=== PATIENT | female | born 1995 | race Caucasian/White ===

== ENCOUNTER 2020-02-16 07:33 | Observation (INO) ==
[2020-02-16] MEDS ORDERED: OXYTOCIN 30 UNITS/500 ML BAG IV PRN ×2 (07:43→23:06)
[2020-02-16] MEDS ORDERED: miSOPROStoL 200 MCG TAB PV ONE ×2 (07:43→16:45)
--- NOTE | 2020-02-16 08:01 | History & Physical Report ---
Date of Service February 16, 2020 Assessment & Plan (1) IUFD at less than 20 weeks of gestation: 24 yo at 2nd trimester VSS Afebrile No medical problems Desires genetic testing and find out gender Declines screening for maternal disorders like APS, SLE, coagulapathy Agrees with basic blood work Plan for PV Cytotec All questions were answered History of Present Illness Primary Care Provider: NO PCP Patient is a 24 yo who was scheduled for IOL for IUFD, diagnosed on 02/04 in ER when she presented with VB at 18 wks Fetus was measuring about 14 weeks She opted expectant management and then called back to be induced She has been having light VB since 22dn, no pain No fever/ chills/ N&V/ Abd pain nor cramping Her was uncomplicated She denies any medical problems nor medications Allergies Allergy/AdvReac Type Severity Reaction Status Date / Time No Known Allergies Allergy Verified 02/16/20 07:45 Home Medications Home Medications Medication Instructions Recorded Confirmed Type multivitamin 1 tab PO 02/16/20 History Patient History Medical History No known health problems Surgical History [place] teeth extracted 2013 Family History Father Heart disease Social History Preferred Language: [place] Communication Ability: Effective Beliefs That Will Affect Care: None marital status: Single Current Living Situation: Significant Other Other Information That Helps Us Care for You: No Feels Safe at Home: Yes Smoking Status: Never smoker Hx Alcohol Use: No Hx Substance Use: No [employer] History Denies h/o STD's Review of Systems All systems reviewed & are unremarkable except as noted in HPI & below Physical Exam Constitutional: WD/WN, vitals as above well developed and well nourished NAD Gastrointestinal (Abdomen): normal bowel sounds, soft, nontender, no hepatosplenomegaly Code Status & VTE Plan VTE Prophylaxis Plan VTE Prophylaxis will be ordered: Yes
[2020-02-16] MEDS: LACTATED RINGER'S 1,000 ML IV PRN ×3 (08:38→22:57)
--- NOTE | 2020-02-16 08:48 | Obstetrical Progress Note ---
Date of Service February 16, 2020 Assessment & Plan Admission and Anticipated Discharge Date Admission Date: February 16, 2020 Subjective VE: cervix closed, thick and firm 600 mcg of Cytotec were placed in vagina No blood Uterus 14 wks size Continue to monitor Results & Data ([facility]) Vital Signs (Past 12 Hours) Vital Signs Temp Pulse Resp BP 02/16/20 08:04 76 120/81 02/16/20 07:50 36.9 C 18
[2020-02-16 08:50] LABS: Hematocrit (blood only) 38.8 % (37-47); Hemoglobin 12.8 g/dL (12.0-16.0); Mean Corpuscular Hemoglobin 27.5 pg (25-34); Mean Corpuscular Volume 83.3 fL (80-100); Platelet Count 277 K/uL (130-400); RDW Coefficient of Variation 13.1 % (11.5-14.5); RDW Standard Deviation 39.4 fL (36.4-46.3); Red Blood Count 4.66 M/uL (4.2-5.4)
[2020-02-16 09:08] LABS: Fibrinogen 356 mg/dl (184-400); Partial Thromboplastin Ratio 1.1; Partial Thromboplastin Time 31.9 Seconds (21.0-31.0); Prothrombin Time 10.2 Seconds (9.0-12.0)
[2020-02-16 09:23] LABS: Albumin Level 3.7 gm/dl (3.4-5.0); BUN Creatinine Ratio 18.8 (10-20); Calcium 9.2 mg/dl (8.5-10.1); Creatinine Clr Calc Pharmacy 141.4 ml/min; Est GFR (African American) 129.3; Est GFR (Non-African American) 111.6; Potassium 3.7 mmol/L (3.5-5.1)
[2020-02-16 09:38] LABS: Albumin Globulin Ratio 0.9 (0.9-2); Bilirubin,Total 0.2 mg/dl (0.2-1); Thyroid Stimulating Hormone 3.3 uIu/ml (0.300-4.500); Total Protein 7.7 gm/dl (6.4-8.2)
[2020-02-16] MEDS ORDERED: miSOPROStoL 200 MCG TAB PO ONE ×2 (12:45→20:55)
--- NOTE | 2020-02-16 15:07 | Obstetrical Progress Note ---
Date of Service February 16, 2020 Assessment & Plan Admission and Anticipated Discharge Date Admission Date: February 16, 2020 Subjective Patient is reevaluated She feels well, no complaints No pain / cramping No VB nor spotting She desires autopsy of fetus after delivery and cytogenetic testing Results & Data ([facility]) Vital Signs (Past 12 Hours) Vital Signs Temp Pulse Resp BP 02/16/20 12:22 63 124/78 02/16/20 12:21 37.0 C 18 02/16/20 08:04 76 120/81 02/16/20 07:50 36.9 C 18
--- NOTE | 2020-02-16 16:52 | Obstetrical Progress Note ---
Date of Service February 16, 2020 Assessment & Plan Admission and Anticipated Discharge Date Admission Date: February 16, 2020 Subjective Patient is reevaluated No complaints 600 mcg of Cytotec was placed in posterior fornix Cervix is still closed and thick No blood in vagina She signed autopsy form with no restrictions Results & Data ([facility]) Vital Signs (Past 12 Hours) Vital Signs Temp Pulse Resp BP 02/16/20 16:12 36.8 C 65 18 137/79 02/16/20 12:22 63 124/78 02/16/20 12:21 37.0 C 18 02/16/20 08:04 76 120/81 02/16/20 07:50 36.9 C 18
[2020-02-16] MEDS: BUTORPHANOL TARTRATE 1 MG/ML VIAL IV PRN ×3 (18:29→22:44)
--- NOTE | 2020-02-16 20:56 | Obstetrical Progress Note ---
Date of Service February 16, 2020 Assessment & Plan Admission and Anticipated Discharge Date Admission Date: February 16, 2020 Subjective Patient started to feel crampy and passes small bloody d/c with intact Cytotec tbs in it Cervix is still closed and thick Plan to continue with intrabuccal Cytotec Results & Data ([facility]) Vital Signs (Past 12 Hours) Vital Signs Temp Pulse Resp BP 02/16/20 20:50 36.5 C 83 16 131/88 02/16/20 19:17 36.9 C 18 02/16/20 19:16 36.9 C 78 18 131/87 02/16/20 16:12 36.8 C 65 18 137/79 02/16/20 12:22 63 124/78 02/16/20 12:21 37.0 C 18
[2020-02-16] MEDS ORDERED: miSOPROStoL 200 MCG TAB PV SCH (21:00)
[2020-02-16] MEDS ORDERED: BUPIVACAINE 0.25% 30 ML VIAL ONE (22:13)
[2020-02-16] MEDS ORDERED: ePHEDrine sulfate 50 MG/ML AMP ONE (22:13)
[2020-02-16] MEDS ORDERED: fentaNYL 2MCG/ML ROPIV 1.25MG/ML 100 ML BAG EPI ONE (22:14)
[2020-02-16] MEDS ORDERED: fentaNYL citrate 100 MCG/2 ML VIAL ONE (22:14)
[2020-02-16] MEDS ORDERED: CEFAZOLIN 2000MG 2,000 MG/15 ML SYR IV STA (22:54)
[2020-02-16] MEDS ORDERED: ACETAMINOPHEN 325 MG TAB PO PRN (23:06)
[2020-02-16] MEDS ORDERED: SUPERCREAM 0.870% 15 GM JAR EXT PRN (23:06)
[2020-02-16] MEDS ORDERED: HYDROCORTISONE ACETATE 25 MG SUPP PR PRN (23:06)
[2020-02-16] MEDS ORDERED: DIPHTHERIA/TETANUS/PERTUSSIS 0.5 ML SYR/VIAL IM ONE (23:06)
[2020-02-16] MEDS ORDERED: OXYCODONE/ACETAMINOPHEN 5mg/325mg TAB PO PRN (23:06)
[2020-02-16] MEDS ORDERED: MEASLES, MUMPS & RUBELLA VIRUS VIAL SQ ONE (23:06)
[2020-02-16] MEDS ORDERED: BENZOCAINE 20% AER SPR 82.5 GM CAN EXT PRN (23:06)
[2020-02-16] MEDS ORDERED: IBUPROFEN 600 MG TAB PO PRN (23:06)
[2020-02-16] MEDS ORDERED: bisacodyL 10 MG SUPP PR PRN (23:06)
[2020-02-17] MEDS: METHYLERGONOVINE MALEATE 0.2 MG TAB PO SCH ×3 (00:52→08:16)
--- NOTE | 2020-02-17 01:08 | Delivery Summary ---
DATE OF OPERATION: 02/16/2020 DETAILS OF DELIVERY: The patient is a 24-year-old G1, P0 with intrauterine demise at 18 wks by dates and at 14 weeks by US , which was done on 02/05/2020. She initially desired expectant management and then she came in today for induction of labor with Cytotec. She received 4 doses of Cytotec, 2 doses were given per vagina and 2 doses were given by mouth. She then started to have minimal bleeding and leaking and then she passed fetus on her own and cord was very thin and it was clamped and cut. Then the fetus was taken by nursery team per mother request. It skin was all swollen and macerated diffusely and abdomen was distended. Then a speculum was placed in the patient's vagina. Her cervix was visualized to be 1-2 cm open with bulging membranous structures. It was cleaned with Betadine. Those membranes were held with sterile ring forceps and twisted in a clockwise position and the placenta and membranes were delivered together. Placenta seemed to be complete, but it was thin placenta. Then the ring forceps was introduced on the lower cervix. Some pieces of membranes and tissue was removed and a bedside ultrasound was done by myself and uterus was found to be retroverted. I was able to see a thin normal looking endometrium with no retained products and then official ultrasound was called into the room to confirm. Per US no signs of retained placenta noted. Endometrial cavity was empty. Please see their report for details. The patient tolerated the procedure well. Instrument, sponge count was correct x2. EBL was 200ml. No complications happened. I was present during whole procedure. She desired autopsy of the fetus and the cytogenetic studies. The specimens and tissue will be sent to the lab as instructed. I attest to the content of the Intraoperative Record and any orders documented therein. Any exceptions are noted below. CHANDRAKANTD
[2020-02-17] MEDS ORDERED: AMOXICILLIN/CLAVULANATE 875 MG TAB PO SCH (06:00)
[2020-02-17 06:47] LABS: Hemoglobin 12.7 g/dL (12.0-16.0); Mean Corpuscular Hemoglobin 28.5 pg (25-34); Mean Corpuscular Hgb Conc 34.3 g/dL (32-36); Mean Corpuscular Volume 83.1 fL (80-100); Mean Platelet Volume 10.2 fL (7.4-10.4); Platelet Count 284 K/uL (130-400); RDW Coefficient of Variation 13.1 % (11.5-14.5); RDW Standard Deviation 39.7 fL (36.4-46.3); Red Blood Count 4.45 M/uL (4.2-5.4); White Blood Count 9.77 K/uL (4.8-10.8)
--- NOTE | 2020-02-17 06:58 | Obstetrical Progress Note ---
Date of Service February 17, 2020 Assessment & Plan Admission and Anticipated Discharge Date Admission Date: February 16, 2020 Subjective Patient is seen and examined. She feels well, no complaints. Ambulating without dizziness Voiding without difficulty Tolerating regular diet with out N&V Bleeding is minimal No fever/ chills/ CP/ SOB/ N&V/ Leg pain Declined depression or any counseling and/ or meds Vital Signs Temp Pulse Resp BP Pulse Ox 02/17/20 04:00 36.9 C 16 02/17/20 03:57 36.9 C 92 H 16 117/67 02/17/20 01:00 18 02/17/20 00:51 71 118/74 02/17/20 00:40 18 02/17/20 00:17 68 118/75 02/17/20 00:10 18 02/17/20 00:02 86 116/71 02/16/20 23:55 88 18 107/51 L 02/16/20 23:40 93 H 18 123/73 02/16/20 23:26 102 H 99 02/16/20 23:25 18 02/16/20 23:24 92 H 125/66 02/16/20 23:21 90 98 02/16/20 23:16 90 97 02/16/20 23:11 95 H 97 02/16/20 23:10 18 02/16/20 23:09 96 H 132/75 02/16/20 23:08 107 H 93 02/16/20 23:06 97 H 99 02/16/20 23:01 92 H 97 02/16/20 22:56 95 H 100 02/16/20 22:51 97 H 98 02/16/20 22:49 98 H 92 02/16/20 22:46 99 H 97 02/16/20 22:25 96 H 124/85 99 02/16/20 22:10 36.5 C 02/16/20 20:50 36.5 C 83 16 131/88 02/16/20 19:17 36.9 C 18 02/16/20 19:16 36.9 C 78 18 131/87 Lab Results 02/16/20 02/16/20 02/16/20 Range/Units 08:33 08:33 08:33 WBC 7.10 (4.8-10.8) K/uL RBC 4.66 (4.2-5.4) M/uL Hgb 12.8 (12.0-16.0) g/dL Hct 38.8 (37-47) % MCV 83.3 (80-100) fL MCH 27.5 (25-34) pg MCHC 33.0 (32-36) g/dL RDW Std Deviation 39.4 (36.4-46.3) fL RDW Coeff of Gabrielle 13.1 (11.5-14.5) % Plt Count 277 (130-400) K/uL MPV 10.0 (7.4-10.4) fL PT 10.2 (9.0-12.0) Seconds INR 1.0 (0.9-1.1) APTT 31.9 H (21.0-31.0) Seconds PTT Ratio 1.1 Fibrinogen 356 (184-400) mg/dl Sodium (136-145) mmol/L Potassium (3.5-5.1) mmol/L Chloride (98-107) mmol/L Carbon Dioxide (21-32) mmol/L Anion Gap (3-11) BUN (7-18) mg/dl Creatinine (0.6-1.2) mg/dl Est Cr Clr Drug Dosing ml/min Est GFR ( Amer) Est GFR (Non-Af Amer) BUN/Creatinine Ratio (10-20) Glucose (70-99) mg/dl Calcium (8.5-10.1) mg/dl Total Bilirubin (0.2-1) mg/dl AST (15-37) U/L ALT (12-78) U/L Alkaline Phosphatase (45-117) U/L Total Protein (6.4-8.2) gm/dl Albumin (3.4-5.0) gm/dl Globulin (2.5-4.0) gm/dl Albumin/Globulin Ratio (0.9-2) TSH (0.300-4.500) uIu/ml Hepatitis C Antibody (Neg) Genetic Analysis Reprt Blood Type O Positive Antibody Screen NEGATIVE 02/16/20 02/16/20 02/16/20 Range/Units 08:33 08:33 08:33 WBC (4.8-10.8) K/uL RBC (4.2-5.4) M/uL Hgb (12.0-16.0) g/dL Hct (37-47) % MCV (80-100) fL MCH (25-34) pg MCHC (32-36) g/dL RDW Std Deviation (36.4-46.3) fL RDW Coeff of Gabrielle (11.5-14.5) % Plt Count (130-400) K/uL MPV (7.4-10.4) fL PT (9.0-12.0) Seconds INR (0.9-1.1) APTT (21.0-31.0) Seconds PTT Ratio Fibrinogen (184-400) mg/dl Sodium 137 (136-145) mmol/L Potassium 3.7 (3.5-5.1) mmol/L Chloride 107 (98-107) mmol/L Carbon Dioxide 23 (21-32) mmol/L Anion Gap 7.0 (3-11) BUN 14 (7-18) mg/dl Creatinine 0.75 (0.6-1.2) mg/dl Est Cr Clr Drug Dosing 141.4 ml/min Est GFR ( Amer) 129.3 Est GFR (Non-Af Amer) 111.6 BUN/Creatinine Ratio 18.8 (10-20) Glucose 87 (70-99) mg/dl Calcium 9.2 (8.5-10.1) mg/dl Total Bilirubin 0.2 (0.2-1) mg/dl AST 10 L (15-37) U/L ALT 22 (12-78) U/L Alkaline Phosphatase 113 (45-117) U/L Total Protein 7.7 (6.4-8.2) gm/dl Albumin 3.7 (3.4-5.0) gm/dl Globulin 4.0 (2.5-4.0) gm/dl Albumin/Globulin Ratio 0.9 (0.9-2) TSH 3.300 (0.300-4.500) uIu/ml Hepatitis C Antibody Neg (Neg) Genetic Analysis Reprt Blood Type Antibody Screen 02/17/20 Range/Units 06:09 WBC 9.77 (4.8-10.8) K/uL RBC 4.45 (4.2-5.4) M/uL Hgb 12.7 (12.0-16.0) g/dL Hct 37.0 (37-47) % MCV 83.1 (80-100) fL MCH 28.5 (25-34) pg MCHC 34.3 (32-36) g/dL RDW Std Deviation 39.7 (36.4-46.3) fL RDW Coeff of Gabrielle 13.1 (11.5-14.5) % Plt Count 284 (130-400) K/uL MPV 10.2 (7.4-10.4) fL PT (9.0-12.0) Seconds INR (0.9-1.1) APTT (21.0-31.0) Seconds PTT Ratio Fibrinogen (184-400) mg/dl Sodium (136-145) mmol/L Potassium (3.5-5.1) mmol/L Chloride (98-107) mmol/L Carbon Dioxide (21-32) mmol/L Anion Gap (3-11) BUN (7-18) mg/dl Creatinine (0.6-1.2) mg/dl Est Cr Clr Drug Dosing ml/min Est GFR ( Amer) Est GFR (Non-Af Amer) BUN/Creatinine Ratio (10-20) Glucose (70-99) mg/dl Calcium (8.5-10.1) mg/dl Total Bilirubin (0.2-1) mg/dl AST (15-37) U/L ALT (12-78) U/L Alkaline Phosphatase (45-117) U/L Total Protein (6.4-8.2) gm/dl Albumin (3.4-5.0) gm/dl Globulin (2.5-4.0) gm/dl Albumin/Globulin Ratio (0.9-2) TSH (0.300-4.500) uIu/ml Hepatitis C Antibody (Neg) Genetic Analysis Reprt Blood Type Antibody Screen PE: General: Alert, orientedx3, NAD Abd: soft, NT, fundus firm, below Umbilicus Perineum intact, Lochia rubra minimal Ext; NT, no edema AP: 24 yo s/p IOL for IUFD, ppd# 1 VSS Afebrile doing well All questions were answered D/C home , f/u in office Results & Data ([place]) Vital Signs (Past 12 Hours) Vital Signs Temp Pulse Resp BP Pulse Ox 02/17/20 04:00 36.9 C 16 02/17/20 03:57 36.9 C 92 H 16 117/67 02/17/20 01:00 18 02/17/20 00:51 71 118/74 02/17/20 00:40 18 02/17/20 00:17 68 118/75 02/17/20 00:10 18 02/17/20 00:02 86 116/71 02/16/20 23:55 88 18 107/51 L 02/16/20 23:40 93 H 18 123/73 02/16/20 23:26 102 H 99 02/16/20 23:25 18 02/16/20 23:24 92 H 125/66 02/16/20 23:21 90 98 02/16/20 23:16 90 97 02/16/20 23:11 95 H 97 02/16/20 23:10 18 02/16/20 23:09 96 H 132/75 02/16/20 23:08 107 H 93 02/16/20 23:06 97 H 99 02/16/20 23:01 92 H 97 02/16/20 22:56 95 H 100 02/16/20 22:51 97 H 98 02/16/20 22:49 98 H 92 02/16/20 22:46 99 H 97 02/16/20 22:25 96 H 124/85 99 02/16/20 22:10 36.5 C 02/16/20 20:50 36.5 C 83 16 131/88 02/16/20 19:17 36.9 C 18 02/16/20 19:16 36.9 C 78 18 131/87
--- NOTE | 2020-02-17 07:35 | Ultrasound Report ---
EXAMINATION: PELVIC ULTRASOUND (transabdominal only) CLINICAL HISTORY: demise. Bleeding. Evaluate for retained products of conception. COMPARISON STUDY: FINDINGS: The uterus measured r uterus measured 9.3 x 5.2 x 6.2 cm. The myometrial was mildly hypervascular. The endometrial stripe measured 4 mm. Neither ovary was visualized. IMPRESSION: 1. Limited transabdominal study. 4 mm endometrial stripe. ACT 112: Negative or not required by law. Electronically signed by: Fabio Downs M.D. 02/17/2020 7:34 AM
[2020-02-17] MEDS ORDERED: FERROUS SULFATE 325 MG TAB PO SCH (08:00)
[2020-02-17] MEDS ORDERED: PRENATAL VITAMIN 1 TAB PO SCH (08:00)
[2020-02-17] MEDS ORDERED: DOCUSATE SODIUM 100 MG CAP PO SCH (08:00)
[2020-02-17] MEDS ORDERED: MEASLES, MUMPS & RUBELLA VIRUS VIAL SQ ONE (08:15)
[2020-02-17] MEDS ORDERED: bisacodyL 5 MG TABEC PO SCH (20:00)
--- NOTE | 2020-02-20 01:17 | Discharge Summary (DS) ---
DETAILS OF ADMISSION: The patient is a 24-year-old G1, P0 at 18 weeks of gestation by dates, but 14 weeks by ultrasound with no heartbeat, diagnosed on 02/05/2020 in the ER by ultrasound, intrauterine demise. She presented to labor and delivery for scheduled induction of labor on 02/16/2020. Her cervix was closed. She had no signs of miscarriage. She received p.o. and vaginal Cytotec and then she delivered the fetus on her own. The patient desired the fetus to be sent to pathology for autopsy. Then placenta was delivered spontaneously as intact and complete and some of the membranes and debris were removed from the uterus with the tip of ring forceps. Her delivery was uncomplicated. Then on day #1, on 02/17/2020, patient desired to be discharged. Her bleeding was minimal, her pain was mild under control with Motrin and Tylenol. Her vital signs were stable and afebrile. Her H and H was 12/38. She was discharged on 02/17/2020. Prescriptions were written, instructions were given when to call. She is to be seen in the office for followup and discussion of autopsy and genetic studies of the fetus.
== END 2020-02-17 09:15 | disposition home or self-care (01) ==
LOC: 4S1 07:33 → INTOOBSV 07:33